=== PATIENT | female | born 1995 | race Caucasian/White ===

== ENCOUNTER 2017-01-01 16:39 | Emergency (ER) | payer SELFPAY ==
[2017-01-01 17:55] VITALS: BP 107/62
[2017-01-01] MEDS ORDERED: Sulfamethox/Trimethoprim DS 800/160* TAB PO ONE (18:18)
--- NOTE | 2017-01-01 18:19 | UC ---
Skin Complaint HPI - HPI Summary HPI Summary: Patient has Hx of MRSA, she developed a large area of redness and induration on the left buttock, it has been draining small amounts. the area is tender and warm to touch - History of Current Complaint Chief Complaint: UCSkin Time Seen by Provider: 01/01/17 17:56 Stated Complaint: SKIN COMPLAINT Hx Obtained From: Patient Hx Last Menstrual Period: ~03/21/14 ?: No Onset/Duration: Sudden Onset, Lasting Days Skin Exposure Onset/Duration: Days Ago Timing: Constant Onset Severity: Moderate Current Severity: Severe Location: Discrete Character: Swelling, Redness, Raised, Painful Aggravating: Nothing Alleviating: Nothing - Allergy/Home Medications Allergies/Adverse Reactions: Allergies Allergy/AdvReac Type Severity Reaction Status Date / Time No Known Allergies Allergy Verified 05/12/14 13:37 Review of Systems Constitutional: Negative Skin: Other - redness Eyes: Negative ENT: Negative Respiratory: Negative Cardiovascular: Negative Gastrointestinal: Negative Genitourinary: Negative Motor: Negative Neurovascular: Negative Musculoskeletal: Negative Neurological: Negative Psychological: Negative All Other Systems Reviewed And Are Negative: Yes PMH/Surg Hx/FS Hx/Imm Hx Previously Healthy: Yes - Surgical History Surgical History: None - Family History Known Family History: Negative: Cardiac Disease, Hypertension - Social History Alcohol Use: None Substance Use Type: None Smoking Status (MU): Light Every Day Tobacco Smoker Type: Cigarettes Amount Used/How Often: ~1/2 PPD Length of Time of Smoking/Using Tobacco: 10 Years Have You Smoked in the Last Year: Yes Household Exposure Type: Cigarettes Physical Exam Triage Information Reviewed: Yes Appearance: Well-Appearing, Well-Nourished, Pain Distress Vital Signs: Initial Vital Signs Temp 96.8 F 01/01/17 17:51 Pulse 78 01/01/17 17:51 Resp 14 01/01/17 17:51 BP 107/62 01/01/17 17:51 Pulse Ox 96 01/01/17 17:51 Vital Signs Reviewed: Yes Eye Exam: Normal ENT Exam: Normal Dental Exam: Normal Neck exam: Normal Respiratory Exam: Normal Cardiovascular Exam: Normal Abdominal Exam: Normal Bowel Sounds: Positive: Present Musculoskeletal Exam: Normal Musculoskeletal: Positive: Strength Intact, ROM Intact, No Edema Neurological Exam: Normal Psychological Exam: Normal Skin: Positive: Other - large area of erythema from the center of right buttock to the hip joint. scabbed area in center of right buttock, hard induration present, non fluctuant Course/Dx - Course Course Of Treatment: hx obtained, exam performed, meds reviewed, Urine HGC neg, treated for infection, education on warm soaks and compresses, follow up in 2 days if not improving. patient opted to not have the I and D and try to allow it to drain on its own. - Differential Diagnoses - Skin Complaint Differential Diagnoses: Abscess, MRSA, Urticaria - Diagnoses Provider Diagnoses: abscess. hx of MRSA Discharge - Discharge Plan Condition: Stable Disposition: HOME Patient Education Materials: Abscess (ED), MRSA (Methicillin-Resistant Staphylococcus Aureus) (ED) Additional Instructions: 1. take the medication as prescribed. 2. Multiple warm soaks in the tub and hot compresses to allow the area to drain. 3. Ibuprofen for pain as needed. 4. If no impromvement in the next 24-48 hours, follow up.
== END 2017-01-01 18:32 | disposition home or self-care (01) ==
LOC: UCCORT 16:39
DX: L02.31 Cutaneous abscess of buttock (principal); F17.210 Nicotine dependence, cigarettes, uncomplicated
CPT/HCPCS: 36415; 84702; 86703; 99212; A9270-GY; G0463

== ENCOUNTER 2018-07-06 17:53 | Emergency (ER) | payer MEDICAID ==
[2018-07-06 18:58] VITALS: BP 108/65
[2018-07-06] MEDS ORDERED: Ondansetron ODT TAB* 4 MG PO ONE (19:37)
--- NOTE | 2018-07-06 19:58 | UC ---
FLU HPI - HPI Summary HPI Summary: Pt presents with c/o sudden onset of nausea and vomiting X 2 days. - History of Current Complaint Chief Complaint: UCGI Stated Complaint: VOMITING Time Seen by Provider: 07/06/18 19:35 Hx Obtained From: Patient Hx Last Menstrual Period: 3 days ago spotting ?: No Onset/Duration: Sudden Onset, Lasting Days, Still Present Severity Currently: Mild Severity Initially: Mild Pain Intensity: 0 Associated Signs & Symptoms: Positive: Vomiting Related Hx: Possible Flu/Infectious Exposure - Risk Factors Influenza Risk Factors: Negative - Allergy/Home Medications Allergies/Adverse Reactions: Allergies Allergy/AdvReac Type Severity Reaction Status Date / Time avoids amphetamines, opioids Allergy recovering Uncoded 07/06/18 18:59 Home Medications: Home Medications Adhd Med 20 mg PO QAM 07/06/18 [History Confirmed 07/06/18] Buprenorphine HCl/Naloxone HCl [Suboxone 12 mg-3 mg Sl Film] 1 each SL QAM 07/06 [History Confirmed 07/06/18] PMH/Surg Hx/FS Hx/Imm Hx Previously Healthy: Yes - Surgical History Surgical History: None - Family History Known Family History: Negative: Cardiac Disease, Hypertension - Social History Occupation: Employed Full-time Lives: With Family Alcohol Use: None Substance Use Type: None Smoking Status (MU): Light Every Day Tobacco Smoker Type: Cigarettes Amount Used/How Often: ~1/2 PPD Length of Time of Smoking/Using Tobacco: 10 Years Have You Smoked in the Last Year: Yes Household Exposure Type: Cigarettes Review of Systems All Other Systems Reviewed And Are Negative: Yes Constitutional: Positive: Fatigue Skin: Positive: Negative Eyes: Positive: Negative ENT: Positive: Negative Respiratory: Positive: Negative Cardiovascular: Positive: Negative Gastrointestinal: Positive: Vomiting, Nausea Genitourinary: Positive: Negative Motor: Positive: Negative Neurovascular: Positive: Negative Musculoskeletal: Positive: Negative Neurological: Positive: Negative Psychological: Positive: Negative Is Patient Immunocompromised?: No Physical Exam Triage Information Reviewed: Yes Appearance: Ill-Appearing Vital Signs: Initial Vital Signs Temp 98.7 F 07/06/18 18:49 Pulse 112 07/06/18 18:49 Resp 16 07/06/18 18:49 BP 108/65 07/06/18 18:49 Pulse Ox 98 07/06/18 18:49 Vital Signs Reviewed: Yes Eye Exam: Normal ENT Exam: Normal Dental Exam: Normal Neck exam: Normal Respiratory Exam: Normal Cardiovascular Exam: Normal Abdominal Exam: Normal Musculoskeletal Exam: Normal Neurological Exam: Normal Psychological Exam: Normal Skin Exam: Normal Flu Course/Dx - Differential Dx/Diagnosis Differential Diagnosis/HQI/PQRI: Influenza Provider Diagnosis: Nausea and vomiting Discharge - Sign-Out/Discharge Documenting (check all that apply): Patient Departure All imaging exams completed and their final reports reviewed: No Studies - Discharge Plan Condition: Stable Disposition: HOME Prescriptions: Ondansetron HCl [Zofran] 8 mg PO Q8H PRN #15 tablet PRN Reason: Nausea Patient Education Materials: Acute Nausea and Vomiting (ED) Referrals: Chrissy Mxi MD [Primary Care Provider] - If Needed - Billing Disposition and Condition Condition: STABLE Disposition: Home - Attestation Statements Provider Attestation: Per institutional requirements, I have reviewed the chart, however, I was not consulted specifically or made aware of this patient by the midlevel provider. I did not personally evaluate, interact with , or disposition this patient.
[2018-07-06 20:00] LABS: Influenza A Molecular NEGATIVE (Negative); Influenza B Molecular NEGATIVE (Negative)
== END 2018-07-06 20:05 | disposition home or self-care (01) ==
LOC: UCCORT 17:53
DX: R11.2 Nausea with vomiting, unspecified (principal); F17.210 Nicotine dependence, cigarettes, uncomplicated; R53.83 Other fatigue; Z88.5 Allergy status to narcotic agent; Z88.8 Allergy status to other drugs, medicaments and biological substances
CPT/HCPCS: 99212; A9270-GY; G0463